=== PATIENT | female | born 1990 | race Two or more races ===

== ENCOUNTER 2017-05-09 02:06 | Emergency (ER) | payer MEDICAID ==
[~2017-05-09] VITALS: Ht 165.1 cm; Wt 66.8 kg
[2017-05-09 04:50] LABS: BASOPHILS % 0.3 % (0.0-2.0); EOSINOPHILS % 0.2 % (0.0-5.0); HEMATOCRIT. 33.6 % (36.0-48.0); HEMOGLOBIN. 11.9 g/dL (12.0-16.0); LYMPHOCYTES % 11.6 % (20.0-50.0); MEAN CORPUSCULAR HEMOGLOBIN 31.7 pg (28.0-32.0); MEAN CORPUSCULAR VOLUME 89.2 fL (81.0-99.0); MEAN PLATELET VOLUME 9.7 fl (7.4-10.4); MONOCYTES % 5.1 % (2.0-8.0); NEUTROPHILS % 82.8 % (40.0-76.0); PLATELET 218 x1000/uL (130-400); RED BLOOD CELL COUNT 3.77 mill/uL (4.2-5.4); RED CELL DISTRIBUTION WIDTH 13.5 % (11.6-14.6)
[2017-05-09 04:59] LABS: PROTHROMBIN TIME 10.2 sec
[2017-05-09 05:35] LABS: CARBON DIOXIDE 26 mEq/L (21-32); CHLORIDE 106 mEq/L (98-107)
[2017-05-09 06:05] VITALS: BP 120/61
== END 2017-05-09 06:33 | disposition home or self-care (01) ==
LOC: ER 02:24
DX: E16.2 Hypoglycemia, unspecified (principal); R00.2 Palpitations; Z87.891 Personal history of nicotine dependence
CPT/HCPCS: 36415; 80053; 81025; 85025; 85610; 93005; 99285

== ENCOUNTER 2019-01-26 05:46 | Emergency (ER) | payer MEDICAID ==
[~2019-01-26] VITALS: Ht 165.1 cm; Wt 70.0 kg
[2019-01-26 07:22] LABS: BASOPHILS % 0.6 % (0.0-2.0); EOSINOPHILS % 1.3 % (0.0-5.0); HEMATOCRIT. 29.4 % (36.0-48.0); HEMOGLOBIN. 10.2 g/dL (12.0-16.0); LYMPHOCYTES % 20.7 % (20.0-50.0); MEAN CORPUSCULAR HEMOGLOBIN 31.8 pg (28.0-32.0); MEAN CORPUSCULAR VOLUME 91.7 fL (81.0-99.0); MEAN PLATELET VOLUME 9.9 fl (7.4-10.4); MONOCYTES % 5.7 % (2.0-8.0); NEUTROPHILS % 71.7 % (40.0-76.0); PLATELET 199 x1000/uL (130-400); RED CELL DISTRIBUTION WIDTH 13.7 % (11.6-14.6)
[2019-01-26 07:29] LABS: CHLORIDE 109 mEq/L (98-107)
[2019-01-26 07:37] VITALS: BP 114/42
[2019-01-26 07:54] LABS: B-HCG QUANTITATIVE 18196 mIU/mL (<3)
[2019-01-26] MEDS ORDERED: MORPHINE SULFATE 4 MG/ML CPJ (NOT FOR IM USE) IV STA (08:46)
[2019-01-26] MEDS ORDERED: ONDANSETRON HCL 4MG/2ML INJ IV STA (08:46)
[2019-01-26] MEDS ORDERED: SODIUM CHLORIDE 0.9% 1,000 ML IV ONE (08:46)
[2019-01-26 09:11] LABS: ETHANOL BLOOD < 10 mg/dL; INR 0.9; PROTHROMBIN TIME 9.4 sec (9.6-11.0)
[2019-01-26 09:23] LABS: CLARITY URINE CLOUDY (CLEAR); COLOR URINE YELLOW (YELLOW); KETONES URINE NEGATIVE (NEGATIVE); LEUKOCYTE ESTERASE URINE 1+ (NEGATIVE); NITRITE URINE NEGATIVE (NEGATIVE); OCCULT BLOOD URINE NEGATIVE (NEGATIVE); PH URINE 7.5 (4.5-8.0); PROTEIN URINE NEGATIVE (NEGATIVE); SPECIFIC GRAVITY URINE 1.014 (1.005-1.030); UROBILINOGEN URINE 0.2 E.U./dL (0.2-1.0)
== END 2019-01-26 10:31 | disposition home or self-care (01) ==
LOC: ER 05:46
DX: O23.42 Unspecified infection of urinary tract in pregnancy, second trimester (principal); O99.012 Anemia complicating pregnancy, second trimester; Z3A.21 21 weeks gestation of pregnancy
CPT/HCPCS: 36415; 76805; 80053; 80320; 81003; 81025; 83690; 84702; 85025; 85610; 99284; Z7610; J7030; G0480

== ENCOUNTER 2023-02-27 13:22 | Emergency (ER) | payer MEDICAID ==
[~2023-02-27] VITALS: Ht 165.1 cm; Wt 64.4 kg
[2023-02-27 15:24] VITALS: BP 124/46
== END 2023-02-27 15:26 | disposition home or self-care (01) ==
LOC: ER 13:22
DX: H93.11 Tinnitus, right ear (principal)
CPT/HCPCS: 99281